=== PATIENT | female | born 1980 | race Caucasian/White ===

== ENCOUNTER → 2016-06-08 | Outpatient (CLI) | payer OTHER ==
[~2016-06-08] MED LIST: LEVOPOW36; MTR600X PO
[2016-06-08 11:40] LABS: THYROID STIMULATING HORMONE 1.94 uIu/ml (0.300-4.500)
== END | disposition home or self-care (01) ==
LOC: C.LAB1850 09:58
PROVIDERS: ATTEND Internal Medicine Endocrinology, Diabetes & Metabolism
DX: E06.3 Autoimmune thyroiditis (principal)

== ENCOUNTER → 2016-09-12 | Outpatient (CLI) | payer OTHER ==
--- NOTE | 2016-09-12 10:28 | DIAGNOSTIC IMAGING REPORT ---
THYROID ULTRASONOGRAPHY CLINICAL HISTORY: Thyroid goiter. Solitary thyroid nodule. COMPARISON STUDY: 11/19/2014 FINDINGS: The right lobe measures 4.8 x 2.1 x 1.9 cm. There is a relatively isoechoic 22 x 13 x 11 mm mid to lower pole nodule. Also evident is a 5 mm circumscribed nodule. The left lobe measures 4.4 x 1.6 x 1.2 cm. There is a 3 mm hypoechoic mid to lower pole left lobe nodule. IMPRESSION: Stable multinodular thyroid gland, including a stable isoechoic 22 x 13 x 11 mm right lobe thyroid nodule. Electronically signed by: Stepan Truong M.D. 09/12/2016 10:27 AM Dictated Date/Time: 09/12/2016 10:25 AM
== END | disposition home or self-care (01) ==
LOC: C.ULTR 09:44
PROVIDERS: ATTEND Internal Medicine Endocrinology, Diabetes & Metabolism
DX: E04.1 Nontoxic single thyroid nodule (principal); E04.0 Nontoxic diffuse goiter

== ENCOUNTER 2017-08-07 16:26 | Inpatient (IN) | payer OTHER ==
[~2017-08-07] VITALS: Ht 162.6 cm; Wt 98.0 kg
[2017-08-07] MEDS ORDERED: KETOROLAC TROMETHAMINE 30 MG/ML VIAL IV STA (16:40)
[2017-08-07] MEDS ORDERED: SODIUM CHLORIDE 0.9% 1000ML 1,000 ML IV STA (16:40)
[2017-08-07] MEDS ORDERED: ONDANSETRON INJ 2 MG/ML 2 ML VIAL IV STA (16:40)
[2017-08-07] MEDS ORDERED: LEVO75TA5 PO (17:44)
[2017-08-07 17:48] LABS: BASO % 0.5 %; BASO ABS # 0.06 K/uL (0-0.2); EOS % 0.9 %; EOS ABS # 0.11 K/uL (0-0.5); HEMATOCRIT 43.7 % (37-47); HEMOGLOBIN 14.7 g/dL (12.0-16.0); IG# 0.03 K/uL (0.00-0.02); LYMPH % 17.6 %; LYMPH ABS # 2.15 K/uL (1.2-3.4); MEAN CELL VOLUME 81.7 fL (80-100); MEAN CORPUSCULAR HEMOGLOBIN 27.5 pg (25-34); MEAN CORPUSCULAR HGB CONC 33.6 g/dl (32-36); MEAN PLATELET VOLUME 9.9 fL (7.4-10.4); MONO % 8.5 %; MONO ABS # 1.04 K/uL (0.11-0.59); NEUT % 72.3 %; NEUT ABS # 8.84 K/uL (1.4-6.5); PLATELET COUNT 284 K/uL (130-400); RED CELL DISTRIBUTION WIDTH CV 13.6 % (11.5-14.5); RED CELL DISTRIBUTION WIDTH SD 40.8 fL (36.4-46.3); WHITE BLOOD COUNT 12.23 K/uL (4.8-10.8)
[2017-08-07 18:02] LABS: ALBUMIN 3.9 gm/dl (3.4-5.0); ALT/SGPT 35 U/L (12-78); AST/SGOT 25 U/L (15-37); BLOOD UREA NITROGEN 7 mg/dl (7-18); CALCIUM 8.9 mg/dl (8.5-10.1); CARBON DIOXIDE 25 mmol/L (21-32); CREATININE 0.64 mg/dl (0.60-1.20); GLUCOSE 90 mg/dl (70-99); LIPASE 112 U/L (73-393); POTASSIUM 3.5 mmol/L (3.5-5.1); SODIUM 136 mmol/L (136-145)
[2017-08-07 18:05] LABS: ALKALINE PHOSPHATASE 69 U/L (45-117); TOTAL PROTEIN 7.9 gm/dl (6.4-8.2)
--- NOTE | 2017-08-07 18:38 | DIAGNOSTIC IMAGING REPORT ---
ABDOMINAL ULTRASOUND, RIGHT UPPER QUADRANT HISTORY: Abdominal pain. COMPARISON: None. FINDINGS: Increased hepatic echogenicity is noted. There are no hepatic lesions. Fatty sparing within the gallbladder fossa is noted. The pancreatic body is normal. Head and tail are partially obscured. There are multiple gallstones within the gallbladder. There is mild gallbladder wall thickening. There may be trace pericholecystic fluid. Sonographic Benz sign could not be assessed for given pain medication. There is no biliary ductal dilatation with there is no right hydronephrosis. IMPRESSION: 1. Cholelithiasis, mild gallbladder wall thickening and suspected trace pericholecystic fluid. These findings raise the possibility of acute cholecystitis. A hepatobiliary scan could be obtained as indicated. 2. No biliary ductal dilatation. 3. Fatty infiltration of the liver. Electronically signed by: Jude Celeste M.D. 08/07/2017 6:37 PM Dictated Date/Time: 08/07/2017 6:35 PM
--- NOTE | 2017-08-07 18:54 | DIAGNOSTIC IMAGING REPORT ---
PA CHEST RADIOGRAPH AND UPRIGHT AND SUPINE AP RADIOGRAPHS OF THE ABDOMEN CLINICAL HISTORY: Epigastric pain. COMPARISON STUDY: Right upper quadrant ultrasound performed earlier today. FINDINGS: Lung lungs are normal. Lungs are clear. No pneumothorax or pleural effusion is noted. Cardiac size is normal. Mediastinal contours are normal. There is no evidence for pulmonary edema. There is no free air. The bowel gas pattern is normal. Pelvic calcifications likely reflect phleboliths. IMPRESSION: 1. No free air or evidence of bowel obstruction. 2. No acute cardiopulmonary findings. Electronically signed by: Jude Celeste M.D. 08/07/2017 6:53 PM Dictated Date/Time: 08/07/2017 6:52 PM
[2017-08-07] MEDS ORDERED: CEFTRIAXONE SOD INJ 1 GM ADDVIAL IV STA (18:58)
[2017-08-07] MEDS ORDERED: METRONIDAZOLE 500MG / 100ML NSS IV STA (18:58)
[2017-08-07] MEDS ORDERED: ONDANSETRON INJ 2 MG/ML 2 ML VIAL IV PRN (20:15)
[2017-08-07] MEDS ORDERED: HYDROmorphone INJ 2 MG/ML SYR/VIAL IV PRN (20:15)
--- NOTE | 2017-08-07 20:28 | Surgery Consultation ---
Consultation Date of Consultation: Aug 07, 2017. Attending Physician: Reason for Consultation: Acute cholecystitis History of Present Illness The patient is a 36 year old female who presents to the Emergency Room with complaints of constant and severe abdominal pain that began last night. The patient states that her abdominal pain is localized to her right upper quadrant. Denies back pain or shoulder pain. She denies any pain associated with meals. Reports nausea but she has not vomited. She has been moving her bowels and urinating without issue. Denies fever/chills/recent illness. Denies use of blood thinning or anticoagulant medications. Denies history of previous abdominal surgeries. FHX positive for gallbladder disease (mother). WBC 12.23. CT shows cholelithiasis, mild wall thickening, trace pericholecystic fluid. Findings suggestive for acute cholecystitis. Family History FH: cancer FHx: gallbladder disease Social History Smoking Status: Never Smoker Allergies Coded Allergies: No Known Allergies (Unverified , 06/21/13) Home Medications Scheduled Levothyroxine Sodium (Levothyroxine Sodium), 75 MCG PO DAILY Review of Systems Constitutional: No fever, No chills Respiratory: No shortness of breath Cardiovascular: No chest pain Abdomen: + pain (RUQ), + nausea, No vomiting, No diarrhea, No constipation Genitourinary - Female: No dysuria Physical Exam Date Time Temp Pulse Resp B/P (MAP) Pulse Ox O2 Delivery O2 Flow Rate FiO2 08/07/17 19:30 96 18 138/86 97 Room Air 08/07/17 17:43 78 16 153/97 97 Room Air 08/07/17 16:34 36.9 94 16 156/97 97 Room Air General Appearance: WD/WN, no apparent distress Head: normocephalic, atraumatic ENT: hearing grossly normal Neck: trachea midline Respiratory/Chest: no respiratory distress, no accessory muscle use Abdomen/GI: soft, no organomegaly, no pulsatile mass, + tenderness (RUQ TTP mild-moderate) Neurologic/Psych: alert, normal mood/affect, oriented x 3 Skin: normal color, warm/dry Laboratory Results Last 24 Hours Test 08/07/17 17:05 08/07/17 17:29 Urine Color YELLOW Urine Appearance CLEAR Urine pH 7.0 Urine Specific [place] 1.016 Urine Protein NEG Urine Glucose (UA) NEG Urine Ketones 1+ Urine Occult Blood NEG Urine Nitrite NEG Urine Bilirubin NEG Urine Urobilinogen NEG Urine Leukocyte Esterase MODERATE Urine WBC (Auto) 10-30 /hpf Urine RBC (Auto) 5-10 /hpf Urine Hyaline Casts (Auto) 1-5 /lpf Urine Epithelial Cells (Auto) >30 /lpf Urine Bacteria (Auto) 1+ Urine Test NEG White Blood Count 12.23 K/uL Red Blood Count 5.35 M/uL Hemoglobin 14.7 g/dL Hematocrit 43.7 % Mean Corpuscular Volume 81.7 fL Mean Corpuscular Hemoglobin 27.5 pg Mean Corpuscular Hemoglobin Concent 33.6 g/dl Platelet Count 284 K/uL Mean Platelet Volume 9.9 fL Neutrophils (%) (Auto) 72.3 % Lymphocytes (%) (Auto) 17.6 % Monocytes (%) (Auto) 8.5 % Eosinophils (%) (Auto) 0.9 % Basophils (%) (Auto) 0.5 % Neutrophils # (Auto) 8.84 K/uL Lymphocytes # (Auto) 2.15 K/uL Monocytes # (Auto) 1.04 K/uL Eosinophils # (Auto) 0.11 K/uL Basophils # (Auto) 0.06 K/uL RDW Standard Deviation 40.8 fL RDW Coefficient of Variation 13.6 % Immature Granulocyte % (Auto) 0.2 % Immature Granulocyte # (Auto) 0.03 K/uL Sodium Level 136 mmol/L Potassium Level 3.5 mmol/L Chloride Level 103 mmol/L Carbon Dioxide Level 25 mmol/L Anion Gap 8.0 mmol/L Blood Urea Nitrogen 7 mg/dl Creatinine 0.64 mg/dl Est Creatinine Clear Calc Drug Dose 139.5 ml/min Estimated GFR () 134.0 Estimated GFR (Non- 115.6 BUN/Creatinine Ratio 11.3 Random Glucose 90 mg/dl Calcium Level 8.9 mg/dl Total Bilirubin 0.6 mg/dl Direct Bilirubin < 0.1 mg/dl Aspartate Amino Transf (AST/SGOT) 25 U/L Alanine Aminotransferase (ALT/SGPT) 35 U/L Alkaline Phosphatase 69 U/L Total Protein 7.9 gm/dl Albumin 3.9 gm/dl Lipase 112 U/L Assessment & Plan Acute cholecystitis Dr. Fraser in to see and examine patient. Plan for laparoscopic cholecystectomy, possible open with Dr. Fraser in the OR tomorrow. Risks, benefits, alternatives to the procedure were discussed. Admit med/surg, NPO after midnight, IV mefoxin 2g q6h, pain medication prn, zofran prn, SCDs. OR notified. Please contact with questions or concerns.
[2017-08-07] MEDS ORDERED: HYDROmorphone INJ 0.5 MG/0.5 ML SYR ONE (20:43)
[2017-08-07] MEDS: HYDROmorphone INJ 0.5 MG/0.5 ML SYR IV PRN (20:45)
[2017-08-07 21:00] VITALS: BP 145/80; PULSE 87; TEMP 36.8; O2SAT 99; Ht 162.6 cm; Wt 98.0 kg
[2017-08-07 21:15] VITALS: BP 145/80; PULSE 87; TEMP 36.8; O2SAT 95
[2017-08-07] MEDS: SODIUM CHLORIDE 0.9% 1000ML 1,000 ML IV SCH (22:49)
[2017-08-07] MEDS: ACETAMINOPHEN IV 1,000 MG in EMPTY BAG 0 ML IV SCH (22:49)
[2017-08-07 22:54] VITALS: BP 121/80; PULSE 69; TEMP 36.6; O2SAT 98
[2017-08-07] MEDS: CEFOXITIN IV 2,000 MG in DEXTROSE 5% 50ML 50 ML IV SCH (23:15)
--- NOTE | 2017-08-08 00:04 | EMERGENCY ROOM VISIT NOTE ---
History Report prepared by Zarina: Cali Ortiz Under the Supervision of: Dr. Abel Correa M.D. First contact with patient: 16:35 Chief Complaint: ABDOMINAL PAIN Stated Complaint: SEVERE STOMACH PAIN ON RIGHT SIDE SINCE LAST NIGHT History of Present Illness The patient is a 36 year old female who presents to the Emergency Room with complaints of constant and severe abdominal pain that began last night. The patient states that her abdominal pain is localized to her right upper quadrant/ ribs, and denies any radiation of the pain. She describes the pain as a "sharp" sensation. Her pain onset last night while she was folding laundry, and does not believe she ate any unusual/bad foods. Nothing seems to improve/worsen her pain. The patient is nauseous, but she has not vomited. She denies any associated fevers, vaginal discharge, urinary burning, hematuria, hematochezia, or melena. Source of History: patient Onset: Last Night Position: abdomen (RUQ) Symptom Intensity: severe Quality: sharp Modifying Factors (Worsening): other (N/A) Modifying Factors (Relieving): other (N/A) Associated Symptoms: + nausea, No fevers, No vomiting, No melena, No urinary symptoms Review of Systems See HPI for pertinent positives and negatives. A total of ten systems were reviewed and were otherwise negative. Past Medical & Surgical Medical Problems: (1) Acute cholecystitis Hx of Hypothyroid Family History FH: cancer FHx: gallbladder disease Social History Smoking Status: Never Smoker Marital Status: Housing Status: lives with family Occupation Status: employed Current/Historical Medications Scheduled Levothyroxine Sodium (Levothyroxine Sodium), 75 MCG PO DAILY Allergies Coded Allergies: No Known Allergies (Unverified , 06/21/13) Physical Exam Vital Signs Date Time Temp Pulse Resp B/P (MAP) Pulse Ox O2 Delivery O2 Flow Rate FiO2 08/07/17 19:30 96 18 138/86 97 Room Air 08/07/17 17:43 78 16 153/97 97 Room Air 08/07/17 16:34 36.9 94 16 156/97 97 Room Air Physical Exam Physical Exam GENERAL: She is oriented to person, place, and time. She appears well- developed and well-nourished. She does not appear distressed. ____ HENT: Exam performed. Head: Normocephalic and atraumatic. Right Ear: External ear normal. No mastoid tenderness. Left Ear: External ear normal. No mastoid tenderness. Mouth/Throat: The oropharynx is clear and moist. No trismus in the jaw. No dental abscesses or uvula swelling. No oropharyngeal exudate or tonsillar abscesses. ____ EYES: Conjunctivae and EOM are normal. Pupils are equal, round, and reactive to light. Right eye exhibits no discharge. Left eye exhibits no discharge. No scleral icterus. ____ NECK: Normal range of motion. Neck supple. No JVD present. No spinous process tenderness present. No carotid bruit present. No rigidity. No tracheal deviation and normal range of motion present. No Brudzinski's sign and no Kernig 's sign noted. ____ CV: Normal rate, regular rhythm, normal heart sounds and intact distal pulses. There is no peripheral edema. Palpable radial pulses bue. ____ PULM/CHEST: Effort normal and breath sounds normal. No respiratory distress. No stridor. She has no wheezes. She has no rales. Chest Wall: She exhibits no tenderness. ____ ABD: The abdomen is soft. Bowel sounds are normal. She has no distension. No mass is present. There is tenderness in the epigastrium and RUQ. She is Benz' s sign positive. There is no rebound, no guarding, no tenderness at McBurney's point. Rovsig negative MUSC/SKEL: Normal range of motion. There is no peripheral edema, tenderness or deformity. LYMPH: No cervical adenopathy. ____ NEURO: She is alert and oriented to person, place, and time. She has normal strength. No cranial nerve deficit or sensory deficit. Coordination and gait normal. GCS eye subscore is 4. GCS verbal subscore is 5. GCS motor subscore is 6. Cerebellar tests wnl. ____ SKIN: Skin is warm and dry. She is not diaphoretic. ____ PSYCH: She has a normal mood and affect. He behavior is normal. Judgment and thought content normal. ____ Medical Decision & Procedures ER Provider Diagnostic Interpretation: Radiology results as stated below per my review and radiologist interpretation: ABDOMINAL ULTRASOUND, RIGHT UPPER QUADRANT HISTORY: Abdominal pain. COMPARISON: None. FINDINGS: Increased hepatic echogenicity is noted. There are no hepatic lesions. Fatty sparing within the gallbladder fossa is noted. The pancreatic body is normal. Head and tail are partially obscured. There are multiple gallstones within the gallbladder. There is mild gallbladder wall thickening. There may be trace pericholecystic fluid. Sonographic Benz sign could not be assessed for given pain medication. There is no biliary ductal dilatation with there is no right hydronephrosis. IMPRESSION: 1. Cholelithiasis, mild gallbladder wall thickening and suspected trace pericholecystic fluid. These findings raise the possibility of acute cholecystitis. A hepatobiliary scan could be obtained as indicated. 2. No biliary ductal dilatation. 3. Fatty infiltration of the liver. Electronically signed by: Jude Celeste M.D. 08/07/2017 6:37 PM Dictated Date/Time: 08/07/2017 6:35 PM Laboratory Results 08/07/17 17:29 Red Blood Count 5.35, Mean Corpuscular Volume 81.7, Mean Corpuscular Hemoglobin 27.5, Mean Corpuscular Hemoglobin Concent 33.6, Mean Platelet Volume 9.9, Neutrophils (%) (Auto) 72.3, Lymphocytes (%) (Auto) 17.6, Monocytes (%) (Auto) 8.5, Eosinophils (%) (Auto) 0.9, Basophils (%) (Auto) 0.5, Neutrophils # (Auto) 8.84, Lymphocytes # (Auto) 2.15, Monocytes # (Auto) 1.04, Eosinophils # (Auto) 0.11, Basophils # (Auto) 0.06 08/07/17 17:29 Test 08/07/17 17:05 08/07/17 17:29 Urine Color YELLOW Urine Appearance CLEAR (CLEAR) Urine pH 7.0 (4.5-7.5) Urine Specific [place] 1.016 (1.000-1.030) Urine Protein NEG (NEG) Urine Glucose (UA) NEG (NEG) Urine Ketones 1+ (NEG) Urine Occult Blood NEG (NEG) Urine Nitrite NEG (NEG) Urine Bilirubin NEG (NEG) Urine Urobilinogen NEG (NEG) Urine Leukocyte Esterase MODERATE (NEG) Urine WBC (Auto) 10-30 /hpf (0-5) Urine RBC (Auto) 5-10 /hpf (0-4) Urine Hyaline Casts (Auto) 1-5 /lpf (0-5) Urine Epithelial Cells (Auto) >30 /lpf (0-5) Urine Bacteria (Auto) 1+ (NEG) Urine Test NEG (NEG) White Blood Count 12.23 K/uL (4.8-10.8) Red Blood Count 5.35 M/uL (4.2-5.4) Hemoglobin 14.7 g/dL (12.0-16.0) Hematocrit 43.7 % (37-47) Mean Corpuscular Volume 81.7 fL (80-100) Mean Corpuscular Hemoglobin 27.5 pg (25-34) Mean Corpuscular Hemoglobin Concent 33.6 g/dl (32-36) Platelet Count 284 K/uL (130-400) Mean Platelet Volume 9.9 fL (7.4-10.4) Neutrophils (%) (Auto) 72.3 % Lymphocytes (%) (Auto) 17.6 % Monocytes (%) (Auto) 8.5 % Eosinophils (%) (Auto) 0.9 % Basophils (%) (Auto) 0.5 % Neutrophils # (Auto) 8.84 K/uL (1.4-6.5) Lymphocytes # (Auto) 2.15 K/uL (1.2-3.4) Monocytes # (Auto) 1.04 K/uL (0.11-0.59) Eosinophils # (Auto) 0.11 K/uL (0-0.5) Basophils # (Auto) 0.06 K/uL (0-0.2) RDW Standard Deviation 40.8 fL (36.4-46.3) RDW Coefficient of Variation 13.6 % (11.5-14.5) Immature Granulocyte % (Auto) 0.2 % Immature Granulocyte # (Auto) 0.03 K/uL (0.00-0.02) Anion Gap 8.0 mmol/L (3-11) Est Creatinine Clear Calc Drug Dose 139.5 ml/min Estimated GFR () 134.0 Estimated GFR (Non- 115.6 BUN/Creatinine Ratio 11.3 (10-20) Calcium Level 8.9 mg/dl (8.5-10.1) Total Bilirubin 0.6 mg/dl (0.2-1) Direct Bilirubin < 0.1 mg/dl (0-0.2) Aspartate Amino Transf (AST/SGOT) 25 U/L (15-37) Alanine Aminotransferase (ALT/SGPT) 35 U/L (12-78) Alkaline Phosphatase 69 U/L (45-117) Total Protein 7.9 gm/dl (6.4-8.2) Albumin 3.9 gm/dl (3.4-5.0) Lipase 112 U/L (73-393) Laboratory results reviewed by me Medications Administered Medications (Trade) Dose Ordered Sig/Missy Route Start Time Stop Time Status Last Admin Dose Admin Ketorolac Tromethamine (Toradol Inj) 15 mg NOW STAT IV 08/07/17 16:40 08/07/17 16:43 DC 08/07/17 17:40 15 MG Ondansetron HCl (Zofran Inj) 4 mg NOW STAT IV 08/07/17 16:40 08/07/17 16:43 DC 08/07/17 17:40 4 MG Sodium Chloride 1,000 ml @ 999 mls/hr Q1H1M STAT IV 08/07/17 16:40 08/07/17 17:40 DC 08/07/17 17:39 999 MLS/HR Ceftriaxone Sodium (Rocephin Inj) 1 gm NOW STAT IV 08/07/17 18:58 08/07/17 19:00 DC 08/07/17 19:26 1 GM Metronidazole (Flagyl / Nss) 500 mg NOW STAT IV 08/07/17 18:58 08/07/17 19:00 DC 08/07/17 20:11 500 MG Hydromorphone HCl (Dilaudid Inj) 0.5 mg Q1H PRN IV 08/07/17 20:15 08/21/17 20:14 08/07/17 20:45 0.5 MG ED Course 1637: The patient was evaluated in room C11B. A complete history and physical exam was performed. 1640: Ordered Sodium Chloride 1000 mL @ 999 mL/hr IV, Zofran 4 mg IV, Toradol 15 mg IV. 1858: Labs show mild cytosis of 12.23. Ultrasound of the right upper quadrant concerning for acute cholecystitis. Given the ultrasound readings and the patient's physical exam consistent with acute cholecystitis will begin antibiotics. Ordered Metronidazole 500 mg IV, Rocephin 1 gm IV. I checked on the patient at this time. He is feeling better after pain medication. Her imaging studies are concerning for acute cholecystitis. She was started on Rocephin and Flagyl. I contacted the Surgical [facility] Valdez, he will be down to see the patient.. The patient is aware of her diagnosis. She will remain NPO. 1953: I discussed the case with Dr. Bria Kilgore. He will admit the patient and operate on her her tomorrow. Medical Decision Labs show mild cytosis of 12.23. Ultrasound of the right upper quadrant concerning for acute cholecystitis. Given the ultrasound readings and the patient's physical exam consistent with acute cholecystitis will begin antibiotics. Ordered Metronidazole 500 mg IV, Rocephin 1 gm IV. I checked on the patient at this time. He is feeling better after pain medication. Her imaging studies are concerning for acute cholecystitis. She was started on Rocephin and Flagyl. I contacted the Surgical [facility] Valdez, he will be down to see the patient.. The patient is aware of her diagnosis. She will remain NPO. I discussed the case with Dr. Bria Kilgore. He will admit the patient and operate on her her tomorrow. Medication Reconcilliation Current Medication List: was personally reviewed by me Blood Pressure Screening Patient's blood pressure: Elevated blood pressure Consults Time Called: 1899 Consulting Physician: Jeffry Mullen PA-C Returned Call: 1903 I discussed the case with Jeffry Mon PA-C. He will come evaluate the patient. Additional Consults: Time Called: 1953 Consulted Physician: Dr. Bria Kilgore Returned Call: 1953 Additional Comments: I discussed the case with Dr. Bria Kilgore. He will admit the patient and see her tomorrow. Impression Primary Impression: Acute cholecystitis Scribe Attestation The scribe's documentation has been prepared under my direction and personally reviewed by me in its entirety. I confirm that the note above accurately reflects all work, treatment, procedures, and medical decision making performed by me. The chart was completed utilizing [employer] Speech voice recognition software. Grammatical errors, random word insertions, pronoun errors, and incomplete sentences are an occasional consequence of this system due to software limitations, ambient noise, and hardware issues. Any formal questions or concerns about the content, text, or information contained within the body of this dictation should be directly addressed to the physician for clarification. Departure Information Dispostion Being Evaluated By Surgeon Referrals No Doctor, Assigned (PCP) Patient Instructions [facility]
[2017-08-08] MEDS: CEFOXITIN IV 2,000 MG in DEXTROSE 5% 50ML 50 ML IV SCH ×3 (03:40→17:43)
[2017-08-08 05:12] LABS: BASO % 0.6 %; BASO ABS # 0.06 K/uL (0-0.2); EOS % 2.9 %; EOS ABS # 0.28 K/uL (0-0.5); HEMOGLOBIN 13.7 g/dL (12.0-16.0); IG# 0.01 K/uL (0.00-0.02); LYMPH % 24.6 %; LYMPH ABS # 2.37 K/uL (1.2-3.4); MEAN CELL VOLUME 82.5 fL (80-100); MEAN CORPUSCULAR HEMOGLOBIN 28.2 pg (25-34); MEAN CORPUSCULAR HGB CONC 34.3 g/dl (32-36); MEAN PLATELET VOLUME 9.1 fL (7.4-10.4); MONO % 10.6 %; MONO ABS # 1.02 K/uL (0.11-0.59); NEUT % 61.2 %; NEUT ABS # 5.91 K/uL (1.4-6.5); PLATELET COUNT 243 K/uL (130-400); RED CELL DISTRIBUTION WIDTH CV 13.7 % (11.5-14.5); RED CELL DISTRIBUTION WIDTH SD 41.4 fL (36.4-46.3); WHITE BLOOD COUNT 9.65 K/uL (4.8-10.8)
[2017-08-08] MEDS: ACETAMINOPHEN IV 1,000 MG in EMPTY BAG 0 ML IV SCH ×3 (05:45→23:31)
[2017-08-08 05:52] LABS: ALBUMIN 3.2 gm/dl (3.4-5.0); CALCIUM 8.1 mg/dl (8.5-10.1); CREATININE 0.95 mg/dl (0.60-1.20); TOTAL PROTEIN 6.6 gm/dl (6.4-8.2)
[2017-08-08 07:21] VITALS: BP 125/83; PULSE 71; TEMP 36.7; O2SAT 97
[2017-08-08] MEDS: SODIUM CHLORIDE 0.9% 1000ML 1,000 ML IV SCH ×2 (10:31→17:43)
[2017-08-08] MEDS: HYDROmorphone INJ 0.5 MG/0.5 ML SYR IV PRN ×3 (11:00→22:31)
[2017-08-08] MEDS ORDERED: BUPIVACAINE 0.5 % 5 MG/1 ML MPF 30ML VIAL ONE (13:44)
[2017-08-08] MEDS ORDERED: PROPOFOL IV EMULSION 10 MG/ML 20 ML VIAL IV ONE (13:48)
[2017-08-08] MEDS ORDERED: GLYCOPYRROLATE INJ 0.2 MG/ML VIAL ONE (13:48)
[2017-08-08] MEDS ORDERED: ONDANSETRON INJ 2 MG/ML 2 ML VIAL ONE (13:48)
[2017-08-08] MEDS ORDERED: LIDOCAINE HCL 2% 2 ML VIAL (20MG/ML) ONE (13:48)
[2017-08-08] MEDS ORDERED: DEXAMETHASONE SOD INJ 4 MG/ML VIAL ONE (13:48)
[2017-08-08] MEDS ORDERED: NEOSTIGMINE METHYLSULFATE 5 MG/5 ML SYR ONE (13:48)
[2017-08-08] MEDS ORDERED: MIDAZOLAM HCL 1 MG/ML 2ML VIAL ONE (13:49)
[2017-08-08] MEDS ORDERED: FENTANYL CITRATE INJ 50 MCG/1 ML 2 ML VIAL ONE (13:49)
--- NOTE | 2017-08-08 13:52 | Surgery Progress Note ---
Surgery Progress Note Date of Service Aug 08, 2017. Subjective 36-year-old otherwise healthy female admitted overnight by Dr. Fraser for acute calculus cholecystitis. Feeling better this morning but plane tender in the right upper quadrant. No other complaints Objective Vital Signs: Date Time Temp Pulse Resp B/P (MAP) Pulse Ox O2 Delivery O2 Flow Rate FiO2 08/08/17 08:00 Room Air 08/08/17 07:21 36.7 71 20 125/83 (97) 97 Room Air 08/07/17 23:45 Room Air 08/07/17 22:54 36.6 69 14 121/80 (94) 98 Room Air 08/07/17 21:15 36.8 87 18 145/80 (101) 95 Room Air 08/07/17 21:00 36.8 87 16 145/80 99 Room Air 08/07/17 20:54 86 18 131/99 94 Room Air 08/07/17 19:30 96 18 138/86 97 Room Air 08/07/17 17:43 78 16 153/97 97 Room Air 08/07/17 16:34 36.9 94 16 156/97 97 Room Air General Appearance: WD/WN, no apparent distress, + obese Head: normocephalic, atraumatic Neck: supple, no adenopathy, thyroid normal, no JVD, no carotid bruits, trachea midline Respiratory/Chest: chest non-tender, lungs clear, normal breath sounds, no respiratory distress, no accessory muscle use Cardiovascular: regular rate, rhythm, no edema, no gallop, no JVD, no murmur Abdomen: normal bowel sounds, non distended, soft, + tenderness (Tenderness in the right upper quadrant with positive Benz sign) Extremities: normal range of motion, non-tender, normal inspection, no pedal edema, no calf tenderness, normal capillary refill, pelvis stable Laboratory Results: Results Past 24 Hours Test 08/07/17 17:05 08/07/17 17:29 08/08/17 05:05 Range/Units Urine Color YELLOW Urine Appearance CLEAR CLEAR Urine pH 7.0 4.5-7.5 Urine Specific [place] 1.016 1.000-1.030 Urine Protein NEG NEG Urine Glucose (UA) NEG NEG Urine Ketones 1+ NEG Urine Occult Blood NEG NEG Urine Nitrite NEG NEG Urine Bilirubin NEG NEG Urine Urobilinogen NEG NEG Urine Leukocyte Esterase MODERATE NEG Urine WBC (Auto) 10-30 0-5 /hpf Urine RBC (Auto) 5-10 0-4 /hpf Urine Hyaline Casts (Auto) 1-5 0-5 /lpf Urine Epithelial Cells (Auto) >30 0-5 /lpf Urine Bacteria (Auto) 1+ NEG Urine Test NEG NEG White Blood Count 12.23 9.65 4.8-10.8 K/uL Red Blood Count 5.35 4.85 4.2-5.4 M/uL Hemoglobin 14.7 13.7 12.0-16.0 g/dL Hematocrit 43.7 40.0 37-47 % Mean Corpuscular Volume 81.7 82.5 80-100 fL Mean Corpuscular Hemoglobin 27.5 28.2 25-34 pg Mean Corpuscular Hemoglobin Concent 33.6 34.3 32-36 g/dl Platelet Count 284 243 130-400 K/uL Mean Platelet Volume 9.9 9.1 7.4-10.4 fL Neutrophils (%) (Auto) 72.3 61.2 % Lymphocytes (%) (Auto) 17.6 24.6 % Monocytes (%) (Auto) 8.5 10.6 % Eosinophils (%) (Auto) 0.9 2.9 % Basophils (%) (Auto) 0.5 0.6 % Neutrophils # (Auto) 8.84 5.91 1.4-6.5 K/uL Lymphocytes # (Auto) 2.15 2.37 1.2-3.4 K/uL Monocytes # (Auto) 1.04 1.02 0.11-0.59 K/uL Eosinophils # (Auto) 0.11 0.28 0-0.5 K/uL Basophils # (Auto) 0.06 0.06 0-0.2 K/uL RDW Standard Deviation 40.8 41.4 36.4-46.3 fL RDW Coefficient of Variation 13.6 13.7 11.5-14.5 % Immature Granulocyte % (Auto) 0.2 0.1 % Immature Granulocyte # (Auto) 0.03 0.01 0.00-0.02 K/uL Sodium Level 136 139 136-145 mmol/L Potassium Level 3.5 4.0 3.5-5.1 mmol/L Chloride Level 103 106 98-107 mmol/L Carbon Dioxide Level 25 28 21-32 mmol/L Anion Gap 8.0 5.0 3-11 mmol/L Blood Urea Nitrogen 7 8 7-18 mg/dl Creatinine 0.64 0.95 0.60-1.20 mg/dl Est Creatinine Clear Calc Drug Dose 139.5 94.0 ml/min Estimated GFR () 134.0 89.9 Estimated GFR (Non- 115.6 77.6 BUN/Creatinine Ratio 11.3 8.4 10-20 Random Glucose 90 100 70-99 mg/dl Calcium Level 8.9 8.1 8.5-10.1 mg/dl Total Bilirubin 0.6 0.6 0.2-1 mg/dl Direct Bilirubin < 0.1 0-0.2 mg/dl Aspartate Amino Transf (AST/SGOT) 25 19 15-37 U/L Alanine Aminotransferase (ALT/SGPT) 35 31 12-78 U/L Alkaline Phosphatase 69 60 45-117 U/L Total Protein 7.9 6.6 6.4-8.2 gm/dl Albumin 3.9 3.2 3.4-5.0 gm/dl Lipase 112 73-393 U/L Globulin 3.4 2.5-4.0 gm/dl Albumin/Globulin Ratio 0.9 0.9-2 Microbiology Results 08/07/17 Urine Culture, Received Pending Diagnostic Interpretation: ABDOMINAL ULTRASOUND, RIGHT UPPER QUADRANT HISTORY: Abdominal pain. COMPARISON: None. FINDINGS: Increased hepatic echogenicity is noted. There are no hepatic lesions. Fatty sparing within the gallbladder fossa is noted. The pancreatic body is normal. Head and tail are partially obscured. There are multiple gallstones within the gallbladder. There is mild gallbladder wall thickening. There may be trace pericholecystic fluid. Sonographic Benz sign could not be assessed for given pain medication. There is no biliary ductal dilatation with there is no right hydronephrosis. IMPRESSION: 1. Cholelithiasis, mild gallbladder wall thickening and suspected trace pericholecystic fluid. These findings raise the possibility of acute cholecystitis. A hepatobiliary scan could be obtained as indicated. 2. No biliary ductal dilatation. 3. Fatty infiltration of the liver. Assessment & Plan 36-year-old female with acute calculus cholecystitis, plan for laparoscopic cholecystectomy with possible cholangiogram, possible open. She was informed of the change of surgeon and a new consent was filled out. Plan for laparoscopic cholecystectomy with possible cholangio-gram, possible open The risks of surgery discussed to include but are not limited to bleeding, infection, damage to common bile duct or other structures, conversion to open, need for future more extensive surgery, retained stone, bile leak, and the risks of anesthesia. Re-dose antibiotics preop The diagnosis, treatment options, details of the surgery and recovery, and plan of care were discussed with the patient, all questions were answered, the patient expressed understanding and agrees the plan of care as stated.
[2017-08-08] MEDS ORDERED: CEFOXITIN IV 2,000 MG in DEXTROSE 5% 50ML 50 ML IV ONE (14:00)
[2017-08-08] MEDS ORDERED: PROMETHAZINE HCL INJ 12.5 MG in SODIUM CHLORIDE 0.9% 50ML 50 ML IV PRN (14:45)
[2017-08-08] MEDS ORDERED: ATROPINE SULFATE 0.1 MG/ML 5ML SYR IV PRN (14:45)
[2017-08-08] MEDS ORDERED: ONDANSETRON INJ 2 MG/ML 2 ML VIAL IV PRN (14:45)
[2017-08-08] MEDS ORDERED: FLUMAZENIL 0.1 MG/1 ML 10 ML VIAL IV PRN (14:45)
[2017-08-08] MEDS ORDERED: NALOXONE HCL 0.4 MG/1 ML VIAL/CARP IV PRN (14:45)
[2017-08-08] MEDS ORDERED: FENTANYL CITRATE INJ 50 MCG/1 ML 2 ML VIAL IV PRN (14:45)
[2017-08-08] MEDS ORDERED: LABETALOL HCL IV 5 MG/ML 20ML IV PRN (14:45)
[2017-08-08] MEDS ORDERED: EpHEDrine SULFATE INJ 50 MG/ML AMP IV PRN (14:45)
[2017-08-08] MEDS ORDERED: IOPAMIDOL IV ONE (15:24)
--- NOTE | 2017-08-08 15:44 | DIAGNOSTIC IMAGING REPORT ---
CHOLANGIOGRAM O.R. CLINICAL HISTORY: Intraoperative cholangiogram. COMPARISON STUDY: Right upper quadrant ultrasound and abdominal series August 07, 2017. FLUOROSCOPY TIME: 30.5 seconds. FINDINGS: 4 fluoroscopic images of the right upper quadrant were obtained during intraoperative cholangiogram. There is contrast within the duodenum. No filling defect is identified to suggest choledocholithiasis. There is no biliary ductal dilatation. IMPRESSION: No evidence of choledocholithiasis. Electronically signed by: Jude Celeste M.D. 08/08/2017 3:43 PM Dictated Date/Time: 08/08/2017 3:42 PM
[2017-08-08] MEDS ORDERED: SURGICEL ABSORB HEMOSTAT 2IN X 14IN TOP ONE (15:54)
--- NOTE | 2017-08-08 16:05 | [facility] Post Operative Brief Note ---
Immediate Operative Summary Operative Date Aug 08, 2017. Pre-Operative Diagnosis Acute cholecystitis Post-Operative Diagnosis Acute Cholecystitis Procedure(s) Performed Laparoscopic Cholecystectomy with Cholangiogram Surgeon Dr. Flanagan Production Lead Surgeon(s) none Estimated Blood Loss 30 cc Findings Consistent with Post-Op Diagnosis Acute cholecystitis, negative cholangiogram. Fluids (cc crystalloids) None Specimens A: gallbladder and contents Drains None Anesthesia Type General Complication(s) none Disposition Accompanied Pt To Recover: no Disposition: Recovery Room / PACU
--- NOTE | 2017-08-08 16:13 | [facility] Operative Report ---
Operative Report Operative Date Aug 08, 2017. Pre-Operative Diagnosis Acute cholecystitis Post-Operative Diagnosis Acute calculus cholecystitis Procedure(s) Performed Laparoscopic cholecystectomy with intraoperative cholangiogram Surgeon Dr. Flanagan Primary Therapist Surgeon(s) none Estimated Blood Loss 30 cc Findings Acute calculus cholecystitis. Window of safety obtained, cholangiogram negative for filling defects. Intrahepatic gallbladder removed. Continuous oozing from the liver bed controlled with Surgicel. Fluids None Specimens A: gallbladder and contents Drains None Anesthesia General Complication(s) None Disposition Recovery Room / PACU Indications 36-year-old female admitted with acute calculus cholecystitis, plan for laparoscopic cholecystectomy with possible intraoperative cholangiogram. The risks of the procedure were discussed, all questions were answered, and the patient agreed to proceed with surgery as planned. Description of Procedure The patient was properly identified, consented, and taken to the operating room where she was placed in the supine position. General endotracheal anesthesia was induced. SCDs and a safety belt were placed. Preoperative antibiotics were administered. The patient's abdomen was prepped and draped in the standard sterile fashion. A surgical timeout was performed and all parties were in agreement that this was the correct patient and procedure to be performed and we continued as planned. An incision was made superior and to the left of the umbilicus overlying the rectus muscle and the Veress needle was inserted. Saline drop test confirmed entry into the peritoneum. The abdomen was insufflated with carbon dioxide which the patient tolerated without incident. The abdomen was then entered using the Optiview technique and a 5 mm trocar. The laparoscope was inserted and no damage from initial trocar or Veress needle placement was noted, no gross abnormalities were noted within the 4 quadrants of the abdomen. An 11 mm port was placed in the subxiphoid position and two 5 mm ports were then placed in the right subcostal position. The patient was placed in reverse Trendelenburg position and rotated towards the left. The gallbladder was acutely inflamed. Aspiration needle was used to evacuate some of the gallbladder contents to allow for easier retraction. The dome of the gallbladder was retracted towards the left upper quadrant and the infundibulum was retracted toward the right lower quadrant revealing Calot's triangle. Peritoneal attachments were taken down with electrocautery and blunt dissection. The cystic duct and artery were circumferentially dissected. A window of safety was obtained showing the cystic duct entering the gallbladder with no aberrant structures noted. The Jose Luis cholangiocatheter was then used to perform an intraoperative cholangiogram which showed no filling defects, and good filling of the duodenum and hepatic radicals with contrast. The cystic duct and artery were doubly clipped and divided. The gallbladder was then lifted off the gallbladder fossa with electrocautery. The gallbladder was partially intrahepatic. The gallbladder was placed in an Endo Catch bag and removed through the subxiphoid port site. There was significant amount of oozing from the liver bed and I attempted to control it with electrocautery. Electrocautery slowed some of the bleeding but it continued to ooze, therefore a piece of Surgicel was placed along the gallbladder fossa and pressure was held using a Ray-Sagar for approximately 5 minutes. The Ray-Sagar was removed and hemostasis appeared to be good. The Surgicel was left in place. The right upper quadrant was irrigated and hemostasis was found to be good. 5 mm trochars were removed under direct visualization and the abdomen was allowed to collapse. The subxiphoid port site fascia was closed with 0 Vicryl suture. The wound was irrigated, and the skin of all ports was closed with 4-0 Monocryl subcuticular sutures. Dermabond was placed over the wounds. The patient was extubated in the operating room and taken to the PACU where she recovered without apparent incident. All sponge, instrument and needle counts were correct at the conclusion of the procedure. The patient tolerated the procedure well. I attest to the content of the Intraoperative Record and any orders documented therein. Any exceptions are noted below.
--- NOTE | 2017-08-08 17:02 | Anesthesiology Progress Note ---
Anesthesia Post Op Note Date & Time Aug 08, 2017 at 17:02 Vital Signs Pain Intensity: 0 Vital Signs Past 12 Hours Date Time Temp Pulse Resp B/P (MAP) Pulse Ox O2 Delivery O2 Flow Rate FiO2 08/08/17 16:55 36.5 89 18 136/81 93 Room Air 08/08/17 16:45 79 18 134/81 93 Room Air 08/08/17 16:35 77 18 119/74 100 Oxymask 15 08/08/17 16:25 69 14 104/60 98 Oxymask 15 08/08/17 16:18 36.2 73 14 112/60 95 Oxymask 15 08/08/17 08:00 Room Air 08/08/17 07:21 36.7 71 20 125/83 (97) 97 Room Air Notes Mental Status: alert / awake / arousable, participated in evaluation Pt Amnestic to Procedure: Yes Nausea / Vomiting: adequately controlled Pain: adequately controlled Airway Patency, RR, SpO2: stable & adequate BP & HR: stable & adequate Hydration State: stable & adequate Anesthetic Complications: no major complications apparent
[2017-08-08 17:20] VITALS: BP 137/82; PULSE 95; TEMP 36.7; O2SAT 100
[2017-08-08 17:28] VITALS: O2SAT 100
[2017-08-08 17:50] VITALS: BP 128/81; PULSE 84; O2SAT 98
[2017-08-08 18:37] VITALS: BP 128/80; PULSE 92; TEMP 37; O2SAT 97
[2017-08-08 19:18] VITALS: BP 123/80; PULSE 96; TEMP 37.2; O2SAT 97
[2017-08-08] MEDS ORDERED: NURSING VERBAL MED ORDER ONE (20:00)
[2017-08-09] MEDS: HYDROmorphone INJ 0.5 MG/0.5 ML SYR IV PRN ×2 (00:06→09:18)
[2017-08-09 00:16] VITALS: BP 119/78; PULSE 85; TEMP 36.8; O2SAT 90
[2017-08-09] MEDS: SODIUM CHLORIDE 0.9% 1000ML 1,000 ML IV SCH (03:03)
[2017-08-09 03:05] VITALS: BP 123/78; PULSE 88; TEMP 36.8; O2SAT 93
[2017-08-09] MEDS: ACETAMINOPHEN IV 1,000 MG in EMPTY BAG 0 ML IV SCH (05:26)
--- NOTE | 2017-08-09 06:41 | Surgery Progress Note ---
Surgery Progress Note Date of Service Aug 09, 2017. Subjective Post OP Day: 1 + feeling well, + ambulating, + pain controlled, + nausea (mild nausea last evening), + diet (Tolerating clears), No complaints, No vomiting Objective Vital Signs: Date Time Temp Pulse Resp B/P (MAP) Pulse Ox O2 Delivery O2 Flow Rate FiO2 08/09/17 03:05 36.8 88 14 123/78 (93) 93 Room Air 08/09/17 00:16 36.8 85 14 119/78 (92) 90 Room Air 08/08/17 23:35 Room Air 08/08/17 19:18 37.2 96 18 123/80 (94) 97 Room Air 08/08/17 18:37 37.0 92 16 128/80 (96) 97 Room Air 08/08/17 17:50 84 18 128/81 (97) 98 2.0 08/08/17 17:28 100 Nasal Cannula 2.0 08/08/17 17:20 36.7 95 18 137/82 (100) 100 Nasal Cannula 2.0 08/08/17 16:55 36.5 89 18 136/81 93 Room Air 08/08/17 16:45 79 18 134/81 93 Room Air 08/08/17 16:35 77 18 119/74 100 Oxymask 15 08/08/17 16:25 69 14 104/60 98 Oxymask 15 08/08/17 16:18 36.2 73 14 112/60 95 Oxymask 15 08/08/17 08:00 Room Air 08/08/17 07:21 36.7 71 20 125/83 (97) 97 Room Air General Appearance: WD/WN, no apparent distress Head: normocephalic, atraumatic Abdomen: soft, no organomegaly, + distended (mild), + tenderness (RUQ, incisional mild) Incision(s): clean, dry, intact, no erythema, no drainage Assessment & Plan POD #1 s/p laparoscopic cholecystectomy w/ IOC doing well, pain controlled, tolerating clears. Mild nausea last PM resolved , no vomiting, urinating without issue. Will try Full liquids for breakfast. ADAT. Possible D/C today if she tolerates foods and continues to do well. Please contact with questions or concerns.
--- NOTE | 2017-08-09 07:23 | Discharge Instructions ---
Discharge Instructions Date of Service Aug 09, 2017. Admission Reason for Admission: Acute Cholecystitis Discharge Discharge Diagnosis / Problem: Acute Cholecystitis Discharge Goals Goal(s): Decrease discomfort, Improve function Activity Recommendations Activity Limitations: as noted below Lifting Limitations: no more than 10 pounds, until after follow-up appointment Exercise/Sports Limitations: until after follow-up appointment May Resume Sexual Activity: after follow-up appointment Shower/Bathe: tomorrow Driving or Machine Use: resume 3 days after discharge (Please do not drive while using narcotic pain medication) . Instructions / Follow-Up Instructions / Follow-Up You have surgical glue covering your incisions. Please allow this to fall off on its own. You have been prescribed Percocet to take as needed for pain relief. Please follow-up with Dr. Flanagan in 1-2 weeks. Contact our office at [phone] to schedule an appointment if you have not done so already. Please contact our office with any further questions or concerns. [facility] [place] [address] [place] [address]. Current Hospital Diet Patient's current hospital diet: Full Liquid Diet Discharge Diet Recommended Diet: Regular Diet Procedures Procedures Performed: Laparoscopic Cholecystectomy with Cholangiogram Pending Studies Studies pending at discharge: yes List of pending studies: pathology Medical Emergencies . Who to Call and When: Medical Emergencies: If at any time you feel your situation is an emergency, please call 911 immediately. . Non-Emergent Contact Non-Emergency issues call your: Primary Care Provider, Surgeon Call Non-Emergent contact if: you have a fever, temperature is above 101.5, your pain is not controlled, your pain is worsening, wound has increased drainage, wound has increased redness . "Provider Documentation" section prepared by Jeffry Wolf. . [place] Drug Monitoring Program Search Results: patient reviewed within database, no issues identified
[2017-08-09] MEDS ORDERED: OXYC-57 PO (07:24)
[2017-08-09 08:38] VITALS: BP 134/64; PULSE 90; TEMP 36.7; O2SAT 95
[2017-08-09 10:06] VITALS: O2SAT 95
--- NOTE | 2017-08-09 10:38 | Anesthesiology Progress Note ---
Anesthesia Post Op Note Date & Time Aug 09, 2017 at 10:38 Vital Signs Vital Signs Past 12 Hours Date Time Temp Pulse Resp B/P (MAP) Pulse Ox O2 Delivery O2 Flow Rate FiO2 08/09/17 10:06 95 Room Air 08/09/17 08:38 36.7 90 15 134/64 (87) 95 Room Air 08/09/17 03:05 36.8 88 14 123/78 (93) 93 Room Air 08/09/17 00:16 36.8 85 14 119/78 (92) 90 Room Air 08/08/17 23:35 Room Air Notes Mental Status: alert / awake / arousable, participated in evaluation Pt Amnestic to Procedure: Yes Nausea / Vomiting: adequately controlled Pain: adequately controlled Airway Patency, RR, SpO2: stable & adequate BP & HR: stable & adequate Hydration State: stable & adequate Anesthetic Complications: no major complications apparent
[2017-08-09 12:52] VITALS: BP 134/64; PULSE 90; TEMP 36.7; O2SAT 95
--- NOTE | 2017-08-10 00:23 | Discharge Summary ---
Discharge Summary Date of Service Aug 10, 2017. Admission Date/Reason Aug 07, 2017 at 20:20 Acute Cholecystitis. Discharge Date/Disposition Aug 09, 2017 Home Diagnosis Principal Diagnosis: Acute cholecystitis Procedure(s) Performed laparoscopic cholecystectomy with intraoperative cholangiogram. Medication Reconciliation Percocet 5mg/325mg 1-2 Tablets PO Q4H PRN for pain x 3 days. Disp: 30 Tablets. Admission Physical Exam As per Admitting History & Physical. Hospital Course 08/07/17: Patient presented to the ED this evening due to RUQ abdominal pain x 1 day. She has had a couple episodes like this in the past which resolved without medical intervention. WBC 12.23. CT shows cholelithiasis, mild wall thickening, trace pericholecystic fluid. Findings suggestive for acute cholecystitis. At this time patient was admitted to med/surg and scheduled for laparoscopic cholecystectomy w/ possible intraoperative cholangiogram, possible open with Dr. Flanagan in the OR tomorrow. 08/08/17: Dr. Flanagan was in to see and examine the patient this morning. At this time it was decided to proceed with surgery. Laparoscopic cholecystectomy w/ intraoperative cholangiogram was performed successfully without complications. Cholangiogram showed no stones in the CBD and no CBD dilatation. Patient was sent to the PACU for post-op recovery and then transferred back to med/surg for post-op recovery. 08/09/17: Today she is doing well, mild incisional tenderness, pain controlled. She had mild nausea last night which has since resolved. Tolerating clear liquids. Urinating without issue. Diet was advanced to full liquids for breakfast which she tolerated. Her diet was further advanced to a regular diet for lunch which she tolerated as well. Patient was discharged this afternoon with instructions to follow-up with Dr. Flanagan in the general surgery clinic. She was sent home with a prescription for percocet to take as needed for pain relief. She was given instructions or limitations and wound care as well. Discharge Instructions Please refer to the electronic Patient Visit Report (Discharge Instructions) for additional information.
== END 2017-08-09 13:30 | disposition home or self-care (01) | DRG 419 ==
LOC: C.EDB 16:27 → C.MSN 20:20 → ENRESERV 20:35
PROVIDERS: ADMIT Surgery; ATTEND Surgery
PROC: 0FT44ZZ Resection of Gallbladder, Percutaneous Endoscopic Approach (ICD-10-PCS; principal; 2017-08-08 15:15)
PROC: BF03YZZ Plain Radiography of Gallbladder and Bile Ducts using Other Contrast (ICD-10-PCS; principal; 2017-08-08 15:15)
DX: K81.0 Acute cholecystitis (principal); Z80.9 Family history of malignant neoplasm, unspecified; Z84.89 Family history of other specified conditions